=== PATIENT | male | born 1985 | race Hispanic/Latino ===

== ENCOUNTER 2022-11-27 09:37 | Day surgery (SDC) | payer BC ==
[2022-11-24 16:29] LABS: BASOPHILS % (AUTO) 0.4 % (0.0-5.0); EOSINOPHILS % (AUTO) 1.6 % (0.0-8.0); HEMATOCRIT 46.1 % (42-54); LYMPHOCYTES % (AUTO) 30.3 % (21.0-51.0); MEAN CORPUSCULAR HEMOGLOBIN 29.2 pg (27.0-33.0); MEAN CORPUSCULAR HGB CONC 32.5 g/dL (32.0-36.0); MEAN CORPUSCULAR VOLUME 89.9 fL (79-99); MONOCYTES % (AUTO) 7.9 % (3.0-13.0); NEUTROPHILS % (AUTO) 59.5 % (40.0-77.0); PLATELET COUNT (AUTO) 159 K/uL (130-400); RED BLOOD CELL COUNT(AUTO) 5.13 MIL/uL (4.50-6.20); RED CELL DISTRIBUTION WIDTH 13.5 % (11.0-15.5); WHITE BLOOD COUNT (AUTO) 7.1 K/uL (4.8-10.8)
[2022-11-24 16:32] LABS: APPEARANCE,URINE CLEAR (CLEAR); BILIRUBIN,URINE NEGATIVE (NEGATIVE); COLOR,URINE LIGHT-YELLOW (YELLOW); GLUCOSE, URINE (UA) NEGATIVE (NEGATIVE); KETONES,URINE NEGATIVE (NEGATIVE); LEUKOCYTE ESTERASE ,URINE NEGATIVE Leu/uL (NEGATIVE); NITRATE,URINE NEGATIVE (NEGATIVE); OCCULT BLOOD,URINE NEGATIVE (NEGATIVE); PH,URINE 5.5 (5.0-8.0); PROTEIN,URINE NEGATIVE (NEGATIVE); UROBILINOGEN,URINE 0.2 mg/dL (0.2-1.0)
[2022-11-24 16:43] LABS: ALBUMIN 4.5 g/dL (3.5-5.0); CREATININE 1.2 mg/dL (0.5-1.5); POTASSIUM 4.4 mmol/L (3.5-5.1); TOTAL PROTEIN, SERUM 7.9 g/dL (6.0-8.3)
[2022-11-24 16:45] LABS: RBC,URINE 0-1 /HPF (0-1); WBC,URINE 0-1 /HPF (0-1)
[2022-11-24 16:48] VITALS: BP 187/81
[~2022-11-27] VITALS: Ht 175.3 cm; Wt 125.6 kg
[2022-11-27] VITALS (16 sets, daily range): BP systolic 119–151; BP diastolic 80–104
[2022-11-27] MEDS ORDERED: LACTATED RINGERS 1000ML 1,000 ML IV ONE (09:57)
[2022-11-27] MEDS ORDERED: CEFAZOLIN SODIUM 2 GM VIAL ONE (09:57)
[2022-11-27] MEDS ORDERED: CEFAZOLIN SODIUM 1 GM VIAL ONE (10:09)
[2022-11-27] MEDS ORDERED: BUPIVACAINE/PF 0.5% 30ML VIAL ONE (10:14)
[2022-11-27] MEDS ORDERED: MIDAZOLAM HCL 1 MG/ML 2ML VIAL ONE (12:43)
[2022-11-27] MEDS ORDERED: FENTANYL CITRATE PF 50 MCG/1 ML 2ML VIAL ONE ×2 (12:43→13:51)
[2022-11-27] MEDS ORDERED: PROPOFOL 10 MG/ML 20ML VIAL IV ONE ×2 (12:43→13:16)
[2022-11-27] MEDS ORDERED: BUPIVACAINE/PF 0.5% 30ML VIAL INJ ONE (13:27)
[2022-11-27] MEDS ORDERED: ONDANSETRON 4MG INJ ONE (13:46)
[2022-11-27] MEDS ORDERED: NEOSTIGMINE 5MG/5ML SYR IV ONE (13:48)
[2022-11-27] MEDS ORDERED: GLYCOPYRROLATE 1 MG/5 ML SYRINGE ONE (13:48)
[2022-11-27] MEDS ORDERED: KETOROLAC 30MG VIAL (30MG/ML) ONE (13:55)
[2022-11-27] MEDS ORDERED: MEPERIDINE-PF 25 MG/ML SYG ONE ×3 (13:58→14:58)
== END 2022-11-27 15:59 | disposition home or self-care (01) ==
LOC: DAH 09:37
PROVIDERS: ATTEND Student in an Organized Health Care Education/Training Program
DX: K80.10 Calculus of gallbladder with chronic cholecystitis without obstruction (principal); Z20.822 Contact with and (suspected) exposure to COVID-19; K82.8 Other specified diseases of gallbladder; E78.5 Hyperlipidemia, unspecified; Z82.49 Family history of ischemic heart disease and other diseases of the circulatory system; Z83.3 Family history of diabetes mellitus
CPT/HCPCS: 80053; 85025; 87426; 81001; 36415; 71045; 47562; A4663 ×2; A6207; J7030; J7120; J3010 ×2; J0690 ×2; J3490 ×3; J2710; J2250; J2704 ×2; J2405; J2175 ×3; A6206; C1769 ×3; A4649 ×2; A4215 ×2; A4222 ×2; A4223 ×2; A4221 ×2; A4600 ×2; J1885